=== PATIENT | male | born 1980 ===

== ENCOUNTER 2022-09-29 20:12 | Emergency (ER) | payer BC ==
[~2022-09-29] VITALS: Ht 185.4 cm; Wt 113.6 kg
[2022-09-29 20:39] LABS: BASO # 0.1 K/mm3 (0.0-0.2); BASO % 1.1 % (0.0-2.0); EOS # 0.4 K/mm3 (0.0-0.7); EOS % 4.2 % (0.0-4.0); GRAN # 5.2 K/mm3 (1.4-6.5); GRAN % 55.8 % (42.2-75.2); HEMATOCRIT 46.4 % (42.0-52.0); MEAN CELL VOLUME 91 fl (80.0-100.0); MEAN CORPUSCULAR HEMOGLOBIN 32 pg (27-31); MEAN CORPUSCULAR HGB CONC 35 g/dl (33.0-37.0); MEAN PLATELET VOLUME 10.1 fl (7.4-10.4); MONO # 0.6 K/mm3 (0.1-0.6); MONO % 6.6 % (1.7-9.3); PLATELET COUNT 343 K/mm3 (130-400); RED BLOOD COUNT 5.08 M/mm3 (4.20-5.60); REDCELL DISTRIBUTION WIDTH-CV 12.5 % (11.5-14.5)
[2022-09-29 20:47] LABS: INR 1.1 (0.8-3.0); PROTHROMBIN TIME 12.5 SECONDS (9.7-12.8)
[2022-09-29 20:49] LABS: PARTIAL THROMBOPLASTIN TIME 33.8 SECONDS (26.0-37.0)
[2022-09-29 20:59] LABS: ALANINE AMINOTRANSFERASE 43 U/L (0-55); ALBUMIN 4.4 gm/dL (3.5-5.0); ALKALINE PHOSPHATASE 70 U/L (40-150); ANION GAP 11 mmol/L (7-16); AST,SGOT 19 U/L (5-34); BILIRUBIN,TOTAL 0.5 mg/dL (0.2-1.2); BLOOD UREA NITROGEN 16 mg/dL (9-21); CALCIUM 9.5 mg/dL (8.4-10.2); CARBON DIOXIDE 23 mmol/L (22-29); CHLORIDE 104 mmol/L (98-107); CREATININE, serum 1.16 mg/dL (0.72-1.25); GLUCOSE 145 mg/dL (70-99); LIPASE 43 U/L (8-78); SODIUM 138 mmol/L (136-145); TOTAL PROTEIN 7.4 gm/dL (6.2-8.1)
[2022-09-29 21:05] LABS: TROPONIN-I < 0.010 ng/mL (0.00-0.033)
[2022-09-30 00:17] VITALS: BP 122/80; PULSE 60; TEMP 98.2
== END 2022-09-30 00:17 | disposition home or self-care (01) ==
LOC: COL.ER 20:12
PROVIDERS: Emergency Medicine
DX: R07.89 Other chest pain (principal); R53.1 Weakness; F17.210 Nicotine dependence, cigarettes, uncomplicated; Z28.310 Unvaccinated for COVID-19
CPT/HCPCS: J7030